=== PATIENT | male | born 1960 | race Caucasian/White ===

== ENCOUNTER 2021-08-03 10:00 | Outpatient (CLI) | payer OTHER, SELFPAY ==
[2021-08-03 09:30] VITALS: BP 146/89; PULSE 71; RESP 20; TEMP 37.1; O2SAT 93; BMI 25.7
[2021-08-03] MEDS: ondansetron 2 mg/ML SDV 2 mL 4 MG IVP (10:43)
[2021-08-03 11:11] VITALS: BP 133/85; PULSE 67; RESP 20; TEMP 36.8; O2SAT 94
[2021-08-03 12:12] VITALS: BP 150/85; PULSE 68; RESP 20; TEMP 36.8; O2SAT 93
--- NOTE | 2021-08-03 12:20 | PC.NURSE ---
Order received from ER Dr Ortiz for nausea IVP Zofran 4mg prior to infusion. Patient tolerated well with no reactions.
== END 2021-08-03 10:01 | disposition home or self-care (01) ==
LOC: OPS 10:34
PROVIDERS: Family Provider Family Medicine; PCP Family Medicine; Visit Provider Nurse Practitioner Family
DX: U07.1 COVID-19 (principal)
CPT/HCPCS: 96365; 96375; J2405

== ENCOUNTER 2024-04-18 14:26 | Outpatient (CLI) | payer OTHER, SELFPAY ==
--- NOTE | 2024-04-18 14:30 | XR_ITS ---
WS: [id number] DEXA (DUAL ENERGY X-RAY ABSORPTIOMETRY) Bone mineral density was performed using a [employer] machine. HISTORY: DISORDERS OF BD AND STRUCTURES COMPARISON: None available. Lumbar spine BMD (L1-L4): 1.239 g/cm2 T score: 0.2 Z score: 0.7 Total hip BMD: Left: 1.111 g/cm2. T score: 0.1 Z score: 0.7 Right: 1.079 g/cm2. T score: -0.2 Z score: 0.4 10 year probability of a major osteoporotic fracture is 9.8%. XR/XR DEXA axial skeleton* [id number] IMPRESSION: NORMAL BONE MINERAL DENSITY based upon the WHO classification for females.
== END 2024-04-18 14:27 | disposition home or self-care (01) ==
LOC: RAD 14:27
PROVIDERS: Family Provider Family Medicine; PCP Family Medicine; Visit Provider Family Medicine
DX: M85.88 Other specified disorders of bone density and structure, other site (principal)
CPT/HCPCS: 77080